=== PATIENT | male | born 1975 | race Caucasian/White ===

== ENCOUNTER → 2021-12-15 14:20 | Outpatient (CLI) | payer OTHER, SELFPAY ==
--- NOTE | 2021-12-15 14:26 | DI.RAD.S_ITS ---
PROCEDURE: XR ANKLE LT MIN 3V INDICATIONS: left foot pain TECHNIQUE: 3 views of the ankle were acquired. COMPARISON: None. FINDINGS: Bones: There is linear lucency traversing the proximal aspect of the 5th metatarsal. Ankle mortise is normally aligned. No suspicious bony lesions. Soft tissues: No tibiotalar joint effusion. Achilles tendon appears normal. IMPRESSION: Minimally displaced proximal 5th metatarsal fracture. Dictated by: Anuradha Asif M.D. on 12/15/2021 at 14:57 Approved by: Anuradha Asif M.D. on 12/15/2021 at 14:58
--- NOTE | 2021-12-15 14:26 | DI.RAD.S_ITS ---
PROCEDURE: XR FOOT LT MIN 3V INDICATIONS: left foot pain TECHNIQUE: 3 views of the foot were acquired. COMPARISON: None. FINDINGS: Bones: Branching linear lucency traverses the proximal 5th metatarsal. No suspicious bony lesions. Soft tissues: No tibiotalar joint effusion. Achilles tendon appears normal. IMPRESSION: Comminuted minimally displaced proximal 5th metatarsal fracture. Dictated by: Anuradha Asif M.D. on 12/15/2021 at 14:58 Approved by: Anuradha Asif M.D. on 12/15/2021 at 14:58
== END ==
PROVIDERS: Referring Provider Physician Assistant; Visit Provider Physician Assistant
DX: M79.672 Pain in left foot (principal)
CPT/HCPCS: 73610; 73630

== ENCOUNTER → 2021-12-16 11:59 | Outpatient (CLI) | payer OTHER, SELFPAY ==
--- NOTE | 2021-12-16 12:00 | DI.RAD.S_ITS ---
PROCEDURE: XR KNEE RT 3V INDICATIONS: Right knee pain TECHNIQUE: 3 views of the knee were acquired. COMPARISON: None. FINDINGS: Bones: No fractures or dislocations. No suspicious bony lesions. Mild tricompartmental knee joint space narrowing with periarticular osteophyte formation. Soft tissues: Moderate joint effusion. No suspicious soft tissue calcifications. IMPRESSION: Mild tricompartmental knee joint degeneration and moderate joint effusion. Dictated by: Josue Hernandez [facility] Interpreted: Opal Barone MD on 12/16/2021 at 14:31 Transcribed by: CHANNING on 12/16/2021 at 14:31 Approved by: Opal Barone M.D. on 12/16/2021 at 15:14
== END ==
PROVIDERS: Referring Provider Nurse Practitioner Family; Visit Provider Nurse Practitioner Family
DX: S86.911A Strain of unspecified muscle(s) and tendon(s) at lower leg level, right leg, initial encounter (principal); M17.11 Unilateral primary osteoarthritis, right knee; M25.461 Effusion, right knee
CPT/HCPCS: 73562

== ENCOUNTER → 2022-01-13 12:23 | Outpatient (CLI) | payer OTHER, SELFPAY ==
--- NOTE | 2022-01-13 | DI.US.S_ITS ---
PROCEDURE: US PERIPH VENOUS LOW EXTREM LT INDICATIONS: RULE OUT DVT TECHNIQUE: Real-time imaging, as well as color and pulse Doppler interrogation, were performed of the lower extremity deep veins from the inguinal ligament to the popliteal fossa. COMPARISON: None. FINDINGS: The common femoral, femoral and popliteal veins are normally compressible, and free of intraluminal thrombus. Color and pulse Doppler demonstrate normal phasic intraluminal flow. There is normal augmentation response to distal compression maneuver. IMPRESSION: No deep venous thrombosis identified within the left lower extremity. Dictated by: Josue Hernandez [facility] Interpreted: Opal Barone MD on 01/13/2022 at 13:06 Transcribed by: CHANNING on 01/13/2022 at 13:07 Approved by: Opal Barone M.D. on 01/13/2022 at 15:27
== END ==
PROVIDERS: Referring Provider Podiatrist; Visit Provider Podiatrist
DX: S92.355A Nondisplaced fracture of fifth metatarsal bone, left foot, initial encounter for closed fracture (principal); R60.0 Localized edema; X58.XXXA Exposure to other specified factors, initial encounter
CPT/HCPCS: 93971

== ENCOUNTER → 2022-04-21 15:45 | Outpatient (CLI) | payer OTHER, SELFPAY ==
--- NOTE | 2022-04-21 15:47 | DI.CT.S_ITS ---
PROCEDURE: CT SINUS W CON INDICATIONS: CHRONIC PANSINUSITIS TECHNIQUE: After the administration of intravenous contrast, 3.0 mm axial images acquired from the frontal sinuses to the mid-sella, with coronal and sagittal reformats. For radiation dose reduction, the following was used: automated exposure control, adjustment of mA and/or kV according to patient size. COMPARISON: None. FINDINGS: Image quality: Excellent. Maxillary Sinuses: There is moderate mucosal thickening involving both maxillary sinuses. The medial wall of the right maxillary sinus is absent. The medial wall of the left maxillary sinus is thinned. Ethmoid Air Cells: Mild mucosal thickening is seen involving the anterior ethmoid air cells on the right, with mild mucosal thickening on the left. The ethmoid air cell septations are demineralized. Sphenoid Sinuses: No bony remodeling or destruction. Sinuses are clear. Frontal Sinuses: Mamj-ur-[id number] mucosal thickening can be seen involving the inferior medial maxillary sinuses. No significant bony remodeling is seen. Ostiomeatal Complexes: The ostiomeatal complexes are constitutionally narrowed and are further narrowed by soft tissue thickening. The ostiomeatal complexes are demineralized. Bilateral Zoey cells are seen Miscellaneous: Visualized intra-orbital contents are normal. No raz bullosa. There is mild leftward nasal septal deviation. IMPRESSION: Multifocal paranasal sinus disease is seen, which is worst within the maxillary sinuses. Areas of bony demineralization are seen, which are consistent with chronic sinusitis. Dictated by: Derrell Mauro M.D. on 04/21/2022 at 15:51 Approved by: Derrell Mauro M.D. on 04/21/2022 at 15:53
== END ==
PROVIDERS: PCP Family Medicine; Referring Provider Otolaryngology; Visit Provider Otolaryngology
DX: J32.4 Chronic pansinusitis (principal); R43.0 Anosmia; J34.89 Other specified disorders of nose and nasal sinuses
CPT/HCPCS: 70487

== ENCOUNTER → 2022-05-10 11:04 | Outpatient (CLI) | payer OTHER, SELFPAY ==
[2022-05-10 11:33] LABS: Add Manual Diff / Slide Review NO; Basophils Absolute Auto 0 /uL (0-100); Basophils Percent Auto 0.7 % (0-2); Eosinophils Absolute Auto 0 /uL (0-450); Eosinophils Percent Auto 0.7 % (2-4); Hematocrit 41.7 % (41-53); Lymphocytes Absolute Auto 2300 /uL (1100-4500); Lymphocytes Percent Auto 39.2 % (25-40); Mean Corpuscular HGB Conc 33.6 % (30-36); Mean Corpuscular Hemoglobin 32.2 PG (26-34); Mean Corpuscular Volume 95.7 fL (80-100); Monocytes Absolute Auto 400 /uL (0-900); Monocytes Percent Auto 6.7 % (3-14); Neutrophils Absolute Auto 3100 /uL (1500-7000); Neutrophils Percent Auto 52.7 % (50-75); Platelet Count 174 X10^3/uL (150-400); Red Blood Cell Count 4.36 X10^6/uL (4.5-5.9); Red Cell Distribution Width 13.8 % (11.6-14.8); White Blood Cell Count 5.9 X10^3/uL (4.5-11.0)
[2022-05-10 11:56] LABS: Alanine Aminotransferase 17 IU/L (<50); Albumin 4.6 g/dL (3.5-5.0); Albumin Globulin Ratio 1.5 (1.0-2.8); Alkaline Phosphatase 44 U/L (38-126); Aspartate Aminotransferase 27 IU/L (17-59); Bilirubin Total 0.8 mg/dL (0.2-1.3); Blood Urea Nitrogen 19 mg/dL (9-20); Calcium 9.3 mg/dL (8.4-10.2); Carbon Dioxide 30 mmol/L (22-32); Chloride 101 mmol/L (98-107); Cholesterol 221 mg/dL (140-199); Estimated Glomerular Filt Rate > 60 mL/min (>60); Glucose 85 mg/dL (70-100); HDL Cholesterol 58 mg/dL (40-60); HEMOLYSIS < 15 (0-50); LDL Cholesterol Calculated 150 mg/dL (<100); Potassium 4.1 mmol/L (3.4-5.1); Sodium 139 mmol/L (137-145); Total Protein 7.6 g/dL (6.3-8.2); Triglycerides 66 mg/dL (35-150)
[2022-05-10 12:11] LABS: Vitamin D 25 Hydroxy (D3) 28.6 ng/mL (30.0-100.0)
[2022-05-10 12:24] LABS: Prostate Specific Antigen Scrn 1.89 ng/mL (0.1-4.0)
== END ==
PROVIDERS: PCP Family Medicine; Referring Provider Family Medicine; Visit Provider Family Medicine
DX: I48.91 Unspecified atrial fibrillation (principal); Z12.5 Encounter for screening for malignant neoplasm of prostate; Z13.220 Encounter for screening for lipoid disorders
CPT/HCPCS: 36415; 80053; 80061; 82306; 85025; G0103

== ENCOUNTER → 2022-07-12 13:14 | Outpatient (CLI) | payer OTHER, SELFPAY ==
--- NOTE | 2022-07-12 | DI.CT.S_ITS ---
PROCEDURE: CT SINUS SCREEN WO CON INDICATIONS: Chronic pansinusitis TECHNIQUE: Noncontrast 3.0 mm axial images acquired from the frontal sinuses to the mid-sella, with coronal and sagittal reformats. For radiation dose reduction, the following was used: automated exposure control, adjustment of mA and/or kV according to patient size. COMPARISON: [facility], CT, CT SINUS W CON, 04/21/2022, 16:21. FINDINGS: Image quality: Excellent. Maxillary Sinuses: There is a mucous retention cyst seen involving the inferior left maxillary sinus, with minimal mucous retention cyst seen involving the inferior right maxillary sinus. Mild mucosal thickening can be seen inferiorly on the left. There is a nonnative ostium seen along the medial wall of the right maxillary sinus, as on series 4, image 22. The medial brar of both maxillary sinuses are demineralized. Ethmoid Air Cells: No bony remodeling or destruction. Sinuses are clear. Sphenoid Sinuses: No bony remodeling or destruction. Sinuses are clear. Frontal Sinuses: No bony remodeling or destruction. Sinuses are clear. Ostiomeatal Complexes: Ostiomeatal complexes are patent, yet they are constitutionally narrowed, with bilateral Zoey cells. The ostiomeatal complexes are demineralized. Miscellaneous: Visualized intra-orbital contents are normal. No raz bullosa or paradoxical turbinate curvature. There is minimal rightward nasal septal deviation. IMPRESSION: Paranasal sinus disease is seen, which is improved compared to the prior. There is a nonnative ostium along the medial wall of the right maxillary sinus. Please correlate with prior surgical history versus prior bony erosion. Constitutionally narrowed ostiomeatal complexes, with bilateral Zoey cells. Dictated by: Derrell Mauro M.D. on 07/12/2022 at 13:12 Approved by: Derrell Mauro M.D. on 07/12/2022 at 13:14
== END ==
PROVIDERS: PCP Family Medicine; Referring Provider Otolaryngology; Visit Provider Otolaryngology
DX: J32.4 Chronic pansinusitis (principal); R43.0 Anosmia; J34.89 Other specified disorders of nose and nasal sinuses
CPT/HCPCS: 70486

== ENCOUNTER 2022-10-12 11:38 | Day surgery (SDC) | payer OTHER, SELFPAY ==
[2022-10-11 08:22] VITALS: BMI 25.0
[2022-10-12] VITALS (8 sets, daily range): BP systolic 110–128; BP diastolic 62–89; PULSE 52–68; RESP 14–17; TEMP 36.1–36.4; O2SAT 91–99; BMI 25.0
[2022-10-12] MEDS: LACTATED RINGERS 1,000 ML 42 ML IV ×3 (12:05→15:29)
--- NOTE | 2022-10-12 13:23 | PM.PREOP ---
Pre-operative Note Interval Note History & Physical reviewed/Exam performed by Physician: Yes Changes to H&P: No
--- NOTE | 2022-10-12 13:23 | PM.HP.1 ---
History of Present Illness History of Present Illness Date Patient Seen: 10/12/22 Time Patient Seen: 13:24 Chief complaint: SDC Narrative: 38-year-old male last seen in clinic 08/02/2022 presents for septoplasty and inferior turbinate reduction. He was able to completely stop his Eliquis permanently, and is cleared to use ibuprofen postoperatively. Medical clearance note 08/17/2022 previously reviewed. No interval health changes, wishes to proceed. [facility] Medical History Anosmia (~2011) Atrial fibrillation (~2018) Chronic rhinitis Nasal obstruction Nasal septal deviation Nasal turbinate hypertrophy Skin sore (~2000) Surgical History Anesthesia History of cardiac radiofrequency ablation (~02/2022) History of endoscopic sinus surgery (~2012) Hx of sinus surgery (2012) Family History Mother Mental health problem Social History household members: spouse and children Smoking Status: Never smoker alcohol intake: current Meds Home Medications and Allergies Allergies Allergy/AdvReac Type Severity Reaction Status Date / Time No Known Drug Allergies Allergy Unverified 12/16/21 11:31 Review of Systems Review of Systems Narrative: Negative except as listed in the HPI Exam Vital Signs (past 8 hours): - 10/12/22 11:58 Temperature 97 F L Pulse Rate 52 L Respiratory Rate 17 Blood Pressure 128/73 Pulse Oximetry 99 Oxygen Delivery Method Room Air Oxygen Delivery Method Room Air Narrative Exam Narrative: Well-developed well-nourished, lungs clear to auscultation bilaterally Assessment & Plan Assessment & Plan narrative: Assessment: Nasal airway obstruction, septal deviation, inferior turbinate hypertrophy, chronic rhinitis, anosmia Plan: Following discussion of the material risks benefits complications and alternatives, the patient elected to proceed.
--- NOTE | 2022-10-12 13:26 | P.OP_ITS ---
Operative Date/Time/Diagnoses Date of procedure: 10/12/22 Time of procedure: 14:54 Pre-op diagnosis: Nasal airway obstruction, septal deviation, inferior turbinate hypertrophy, chronic rhinitis, anosmia Post-op diagnosis: same Procedure & Clinicians Procedure: 1. REVISION Septoplasty 2. Bilateral inferior turbinate reduction via intramural cautery Same procedure as scheduled: Yes Indications: 46 Year old with the above diagnoses incompletely managed with medical therapy presents for the above procedure. Following discussion of the material risks benefits complications and alternatives, the patient elected to proceed. Surgeon: Joshua Crawford Click Yes if Unassisted: Yes Anesthesia Type: General and Local Operative Notes Findings: Evidence of prior septoplasty with partially absent anterior low quadrilateral cartilage, atrophic bilateral ant septal mucosa with decreased vascularization, friable LEFT with few mm perforation during dissection, RIGHT flap grossly intact but also atrophic. 2 to 3+ left high mid to anterior cartilagenous septal deviation, mczqd-lvfscqd-lsaw-left inferior turbinate hypertrophy Estimated Blood Loss (mL): 60 Procedure in detail: Following identification and confirmation of consent as well as preoperative Afrin nasal spray, the patient was brought to the operating room suite and p laced in the supine position. General endotracheal anesthesia was administered. I infiltrated the septum widely bilaterally with 2% lidocaine 1 100,000 epinephrine followed by temporary packing with cotton with Afrin and 4% lidocaine. Following sterile prep and drape, the packing was removed and I performed a right gigi-transfixion incision, elevated the right mucoperichondrial and mucoperiosteal flap. I disarticulated near the bony/cartilaginous junction and elevated the left mucoperiosteal flap. Deviated portions of the perpendicular plate of the ethmoid and vomer were resected. The residual quadrilateral cartilage was further straightened by partially reducing the maxillary crest. A 2 mm strip of cartilage paralleling the residual 1 cm dorsal (NOT CAUDAL) strut was resected to further straighten the quadrilateral cartilage. The hemitransfixion incision was closed with interrupted 5 0 chromic followed by a running 4 0 plain gut mattress suture to reapproximate the septal flaps, including 2 interrupted sutures specifically for the LEFT flap perforation. At case completion, 20/1000th of an inch silastic splints were placed bilaterally, sutured anteriorly with a single 4 0 nylon. The head of each inferior turbinate had been previously infiltrated with additional local anesthetic and a 25 gauge spinal needle was used to impale the length of the turbinate, with cautery on a setting of 15 activated on slow withdrawal over 2 passes. The turbinates were then outfractured. The procedure completed, sponge and needle counts were correct and the patient was extubated in the operating room and taken to recovery room in stable condition without known complication. Complications: none Post-operative Condition: stable Disposition: same day surgery Plan for aftercare: Nasal saline every hour while awake, begin irrigations t.i.d. tomorrow if desired. Polysporin to the nostrils at all times, Tylenol alternating with Advil for pain control, oxycodone for breakthrough pain. Elevate head of bed, no nose blowing, no straining for 2 weeks. Ice directly under the nose on the upper lip has tolerated 24-48 hours at a minimum. Follow-up in 1 week for nasal splint removal.
--- NOTE | 2022-10-12 14:01 | SUR.OPER ---
Supine on padded OR bed, head on pillow, arms padded with gel pads and tucked, legs uncrossed, safety belt at thigh.
[2022-10-12] MEDS: LIDOCAINE 2% W/EPI INJ 20 ML INJ (14:05)
[2022-10-12] MEDS: LIDOCAINE 4% SOLN 50 ML 20 ML TOP (14:09)
[2022-10-12] MEDS: BACITRACIN OINT 0.9 GM PCKT 1 APPLIC TOP (14:09)
[2022-10-12] MEDS: OXYCODONE/ACETAMINOPHEN 5/325 TABLET 1 TAB PO (15:28)
== END 2022-10-12 16:35 | disposition home or self-care (01) ==
PROVIDERS: PCP Family Medicine; Referring Provider Otolaryngology; Visit Provider Otolaryngology
PROC: (CPT 30520; principal; 2022-10-12 12:45)
DX: J34.89 Other specified disorders of nose and nasal sinuses (principal); J34.2 Deviated nasal septum; J34.3 Hypertrophy of nasal turbinates; J31.0 Chronic rhinitis; R43.0 Anosmia
CPT/HCPCS: 30520; 30802; A9270; J1100; J2250; J2405; J2704; J3010

== ENCOUNTER → 2024-12-04 10:46 | Outpatient (CLI) | payer OTHER, SELFPAY ==
[2024-12-04 11:56] LABS: Add Manual Diff / Slide Review NO; Hematocrit 41.7 % (41-53); Hemoglobin 14.2 g/dL (13.5-17.5); Lymphocytes Absolute Auto 2200 /uL (1100-4500); Mean Corpuscular HGB Conc 34.2 % (30-36); Mean Corpuscular Hemoglobin 33.4 PG (26-34); Mean Corpuscular Volume 97.7 fL (80-100); Platelet Count 156 X10^3/uL (150-400)
[2024-12-04 12:21] LABS: Blood Urea Nitrogen 24 mg/dL (9-20); Carbon Dioxide 29 mmol/L (22-32); Estimated Glomerular Filt Rate > 60 mL/min (>60); HEMOLYSIS < 15 (0-50)
[2024-12-04 12:22] LABS: Calcium 9.6 mg/dL (8.4-10.2); Chloride 104 mmol/L (98-107); Cholesterol 180 mg/dL (140-199); Glucose 86 mg/dL (70-99); HDL Cholesterol 57 mg/dL (40-60); Potassium 4.4 mmol/L (3.4-5.1); Sodium 138 mmol/L (137-145); Triglycerides 46 mg/dL (35-150)
== END ==
LOC: LAB 10:46
PROVIDERS: PCP Family Medicine; Referring Provider Family Medicine; Visit Provider Family Medicine
DX: Z12.5 Encounter for screening for malignant neoplasm of prostate (principal); Z13.220 Encounter for screening for lipoid disorders; Z86.79 Personal history of other diseases of the circulatory system
CPT/HCPCS: 36415; 80048; 80061; 85025; G0103

== ENCOUNTER 2025-02-12 12:01 | Day surgery (SDC) | payer OTHER, SELFPAY ==
--- NOTE | 2025-02-12 | PATH_ITS ---
[facility] Accession Number: [id number] No. of containers..01 Tissue . 01 Material submitted: . colon - SIGMOID POLYP . 01 Diagnosis: SIGMOID COLON POLYP: Hyperplastic polyp. MRV 02/19/2025 1908 Local . 01 Electronically signed: . Eugenia Thomson MD, Pathologist NPI- [id number] . 01 Gross description: . Received in formalin with two patient identifiers and labeled sigmoid polyp. The specimen consists of one doyle-brown polypoid soft tissue fragment measuring 1.0 x 0.6 x 0.3 cm. The specimen also contains multiple portions of presumed vegetable matter. This entire specimen is submitted in cassette A1. ([id number]) /MODESTA 02/17/20252140 Local . 01 Pathologist provided ICD-10: D12.5 . 01 CPT . 044498 Specimen Comment: A courtesy copy of this report has been sent to [phone] Performed at: [address] [facility] [address], [place], [place] [id number] MD Robert Sims MD Phone: [phone]
[2025-02-12 12:16] VITALS: BP 124/64; PULSE 42; RESP 16; TEMP 36.2; O2SAT 100
[2025-02-12] MEDS: LACTATED RINGERS 1,000 ML 84 ML IV (12:23)
--- NOTE | 2025-02-12 12:43 | PM.HP.IH.1 ---
History of Present Illness History of Present Illness Date Patient Seen: 02/12/25 Time Patient Seen: 12:44 Chief complaint: [facility] Narrative: Marlo is a 49-year-old man in for a screening colonoscopy, his first. No family history of colon cancer. [facility] Medical History (Updated 02/12/25 @ 12:44 by Tk Lazo MD) Family hx of melanoma Multiple nevi Hx of atrial fibrillation, no current medication Chronic rhinitis Nasal turbinate hypertrophy Nasal septal deviation Nasal obstruction Skin sore (~2000) Anosmia (~2011) Surgical History Hx of sinus surgery (2012) Anesthesia History of endoscopic sinus surgery (~2012) History of cardiac radiofrequency ablation (~02/2022) Family History Mother Mental health problem Social History household members: spouse and children Smoking Status: Never smoker alcohol intake: current Meds Home Medications and Allergies Home Medications ?Medication ?Instructions ?Recorded ?Confirmed ?Type sodium,potassium,mag sulfates 17.5 See Rx Instructions PO .COMPLEX 01/05/25 Rx gram-3.13 gram-1.6 gram oral soln #354 mL (Suprep Bowel Prep Kit) Allergies Allergy/AdvReac Type Severity Reaction Status Date / Time No Known Drug Allergies Allergy Verified 02/12/25 12:11 Exam Vital Signs (past 8 hours): - 02/12/25 12:16 Temperature 97.1 F L Pulse Rate 42 L Respiratory Rate 16 Blood Pressure 124/64 Pulse Oximetry 100 Oxygen Delivery Method Room Air Oxygen Delivery Method Room Air Const General: healthy appearing Assessment & Plan Assessment and plan (1) Colon cancer screening: Status: Acute Plan Colonoscopy Time-Based Coding :: [TOTAL MINUTES] spent with patient and on the chart (including review of chart, obtaining history, exam, reviewing outside data, placing orders, documenting exam and treatment plan, and counseling patient) on [DATE]. PROFEE Physicist Nuclear Document charge(s): No
[2025-02-12 13:10] VITALS: BP 125/68; PULSE 48; RESP 13; TEMP 36.3; O2SAT 98
--- NOTE | 2025-02-12 13:12 | PM.OP.COLON ---
Operative Date/Time/Diagnoses Date of procedure: 02/12/25 Time of procedure: 13:12 Pre-op diagnosis: Colon cancer screening Post-op diagnosis: same Procedure & Clinicians Study performed: Colonoscopy Same procedure(s) as scheduled: Yes Surgeon: Tk Lazo Anesthesia Type: MAC +/- Procedure Notes Procedure in detail: Surgeon: Tk Lazo MD Anesthesia: Esdras Benitez MD Procedure: The patient was brought to the endoscopy suite, placed in left lateral decubitus position. The patient was connected to monitoring devices. A time-out was performed. Sedation was administered. Once the patient was adequately sedated, a digital rectal exam was performed and was normal. The scope was then inserted and advanced to the cecum where the appendiceal orifice was identified and photographed. The scope was then slowly withdrawn over greater than 6 minutes. The mucosa was thoroughly inspected. There was a 3 mm polyp in the sigmoid colon removed with a cold snare. The scope was retroflexed in the rectum. No other abnormalities were found. The scope was straightened and removed. The patient was awakened and brought to recovery. Scope withdrawal time: 9 minutes Sedation time: 15 minutes EBL: 3 mL Findings: 3 mm polyp in the sigmoid colon Post-procedure Disposition: PACU
[2025-02-12 13:15] VITALS: BP 125/78; PULSE 42; RESP 16; TEMP 36.8; O2SAT 98
[2025-02-12 13:19] VITALS: BP 125/74; PULSE 46; RESP 16; TEMP 36.2; O2SAT 98
[2025-02-12 13:27] VITALS: BP 122/76; PULSE 45; RESP 12; O2SAT 98
== END 2025-02-12 13:46 | disposition home or self-care (01) ==
PROVIDERS: PCP Family Medicine; Referring Provider Surgery; Visit Provider Surgery
PROC: 0DJD8ZZ Inspection of Lower Intestinal Tract, Via Natural or Artificial Opening Endoscopic (ICD-10-PCS; CPT 45378; principal; 2025-02-12 13:00)
DX: Z12.11 Encounter for screening for malignant neoplasm of colon (principal); K63.5 Polyp of colon
CPT/HCPCS: 45385; J2250; J2704